=== PATIENT | female | born 1975 | race Caucasian/White ===

== ENCOUNTER → 2020-10-13 | Outpatient (CLI) | payer BC, OTHER ==
[~2020-10-13] MED LIST: DAILY VALUE1 EACH PO; HYDROCODON-ACE1 EAC2 PO; LO LOESTRIN FE1 EACH PO; PROBIOTIC1 EAC2 PO; STOOL SOFTENER100 M1 PO; VITAMIN D3 OTC PO
[2020-10-13 08:18] LABS: HEMOGLOBIN 13.8 gm/dl (12.3-15.3); RED BLOOD COUNT 4.27 M/UL (4.00-5.10); WHITE BLOOD COUNT 5.3 K/UL (4.5-11.0)
[2020-10-13 08:46] LABS: BUN/CREATININE RATIO 15 (0-10)
== END ==
LOC: LAB 07:51
PROVIDERS: Physician Assistant
DX: Z13.29 Encounter for screening for other suspected endocrine disorder (principal); Z13.220 Encounter for screening for lipoid disorders; R20.2 Paresthesia of skin
CPT/HCPCS: 36415; 80053; 80061; 82607; 84439; 84443; 85025

== ENCOUNTER → 2020-12-17 | Day surgery (SDC) | payer BC, OTHER | END | disposition home or self-care (01) | LOC: OR 12-16 08:15 | DX: G56.01 Carpal tunnel syndrome, right upper limb (principal); Z98.51 Tubal ligation status; Z87.891 Personal history of nicotine dependence; K21.9 Gastro-esophageal reflux disease without esophagitis | CPT/HCPCS: J1100; J1885; J2001; J2250; J2405; J2704; J3010; J7120 ==

== ENCOUNTER → 2021-07-12 | Outpatient (CLI) | payer BC ==
[2021-07-12 14:06] LABS: BORDETELLA PARAPERTUSSIS Not Detected (Not Detectd); BORDETELLA PERTUSSIS Not Detected (Not Detectd); CHLAMYDIA PNEUMONIAE Not Detected (Not Detectd); CORONAVIRUS HKU1 Not Detected (Not Detectd); CORONAVIRUS NL63 Not Detected (Not Detectd); CORONAVIRUS OC43 Not Detected (Not Detectd); CORONOAVIRUS 229E Not Detected (Not Detectd); HUMAN METAPNEUMOVIRUS Not Detected (Not Detectd); HUMAN RHINOVIRUS/ENTEROVIRUS Not Detected (Not Detectd); INFLUENZA A Not Detected (Not Detectd); INFLUENZA B Not Detected (Not Detectd); MYCOPLASMA PNEUMONIAE Not Detected (Not Detectd); PARAINFLUENZA VIRUS 1 Not Detected (Not Detectd); PARAINFLUENZA VIRUS 2 Not Detected (Not Detectd); PARAINFLUENZA VIRUS 3 Not Detected (Not Detectd); PARAINFLUENZA VIRUS 4 Not Detected (Not Detectd); RESPIRATORY SYNCYTIAL VIRUS Not Detected (Not Detectd)
[2021-07-12 15:19] LABS: SARS-CoV-2 DETECTED (Not Detectd)
== END ==
LOC: LAB 13:11
PROVIDERS: Obstetrics & Gynecology
DX: U07.1 COVID-19 (principal); R53.83 Other fatigue
CPT/HCPCS: 87633

== ENCOUNTER → 2021-10-11 | Outpatient (CLI) | payer BC ==
[2021-10-11 08:18] LABS: HEMOGLOBIN 13.2 gm/dl (12.3-15.3); RED BLOOD COUNT 4.11 M/UL (4.00-5.10); WHITE BLOOD COUNT 4.4 K/UL (4.5-11.0)
[2021-10-11 08:28] LABS: BUN/CREATININE RATIO 19 (0-10)
== END ==
LOC: LAB 07:28
PROVIDERS: Internal Medicine
DX: Z13.1 Encounter for screening for diabetes mellitus (principal); Z13.220 Encounter for screening for lipoid disorders; E04.1 Nontoxic single thyroid nodule; R53.83 Other fatigue; G43.009 Migraine without aura, not intractable, without status migrainosus; R63.5 Abnormal weight gain; Z79.899 Other long term (current) drug therapy
CPT/HCPCS: 36415; 80053; 80061; 82607; 82746; 83036; 84439; 84443; 85025

== ENCOUNTER → 2021-10-31 | Outpatient (CLI) | payer BC | LOC: US 15:27 | DX: E04.9 Nontoxic goiter, unspecified (principal) | CPT/HCPCS: 76536 ==